=== PATIENT | female | born 1940 | race Caucasian/White ===

== ENCOUNTER 2022-06-16 13:09 | Inpatient (IN) | payer OTHER ==
[~2022-06-16] VITALS: Ht 154.9 cm; Wt 74.6 kg
[2022-06-16 14:33] LABS: Urine Bacteria NONE SEEN /hpf (None Seen); Urine Blood Negative /uL (Negative); Urine Mucus FEW (None Seen); Urine Specific Gravity 1.016 (1.001-1.035); Urine WBC 200 /hpf (0 - 5)
[2022-06-16 15:00] LABS: Basophils # (auto) 0 10 ^3/uL (0-0.2); Basophils % (auto) 0.3 % (0.0-2.0); Eosinophils # (auto) 0 10 ^3/uL (0-0.8); Hematocrit 46.2 % (36.0-46.0); Hemoglobin 14.7 g/dL (12.2-16.2); Lymphocytes # (auto) 0.3 10 ^3/uL (0.4-5.4); Lymphocytes % (auto) 2.5 % (10.0-50.0); Mean Corpuscular Hemoglobin 27.6 pg (28.0-32.0); Mean Corpuscular Hgb Conc. 31.9 g/dL (32.0-36.0); Mean Corpuscular Volume 86.5 fL (80.0-100.0); Monocytes # (auto) 0.5 10 ^3/uL (0-1.3); Monocytes % (auto) 3.3 % (0.0-12.0); Neutrophils # (auto) 12.9 10 ^3/uL (1.6-8.6); Neutrophils % (auto) 93.9 % (37.0-80.0); Nucleated Red Blood Cells % 0.1 %; Red Blood Cells 5.34 10^6/uL (4.0-5.20); White Blood Cell 13.7 10^3/uL (4.4-10.8)
[2022-06-16 15:18] LABS: Albumin 3.9 g/dL (3.4-5.0); BUN/Creatinine Ratio 16.2; Calcium 9.3 mg/dL (8.5-10.1); Potassium 3.9 mmol/L (3.5-5.1)
[2022-06-16 15:21] LABS: Bilirubin, Total 0.8 mg/dL (0.2-1.0); Total Protein 7.2 g/dL (6.4-8.2)
[2022-06-16] MEDS ORDERED: cefTRIAXone SOD 1,000 MG VL IV ONE (17:15)
[2022-06-16] MEDS ORDERED: SODIUM CHLORIDE 0.9% 1,000 ML IV ONE (17:15)
[2022-06-16] MEDS ORDERED: cefTRIAXone 1GM/50ML D5W 50 ML IV ONE (17:15)
[2022-06-16] MEDS ORDERED: KETOROLAC TROMETH 30 MG/ML 1ML VIAL IV ONE (17:15)
[2022-06-16] MEDS ORDERED: ONDANSETRON HCL 4 MG/2 ML VIAL IV PRN (19:15)
[2022-06-16] MEDS ORDERED: HYDROcodone-ACET 5/325MG TAB PO PRN (19:15)
[2022-06-16] MEDS ORDERED: MORPHINE SULFATE INJ 2 MG/ml SYRG IV PRN (19:15)
[2022-06-16] MEDS: SODIUM CHLORIDE 0.9% 1,000 ML IV SCH (19:15)
[2022-06-16] MEDS ORDERED: DEXTROSE (50%) 50ML SYRG IV PRN (19:30)
[2022-06-16] MEDS: ACCU-CHEK COMFORT CURVE STRIP VI SCH (22:00)
[2022-06-16] MEDS: InsuLIN REG 1unit/0.01ml Soln (100units/ml) SC SCH (23:25)
[2022-06-17] VITALS (14 sets, daily range): BP systolic 94–187; BP diastolic 38–94
[2022-06-17] MEDS: SODIUM CHLORIDE 0.9% 1,000 ML IV SCH ×2 (03:35→12:30)
[2022-06-17 06:13] LABS: Albumin 2.7 g/dL (3.4-5.0); Calcium 8.5 mg/dL (8.5-10.1); Potassium 3.7 mmol/L (3.5-5.1)
[2022-06-17 06:15] LABS: Basophils # (auto) 0 10 ^3/uL (0-0.2); Basophils % (auto) 0.1 % (0.0-2.0); Eosinophils # (auto) 0 10 ^3/uL (0-0.8); Hematocrit 38.3 % (36.0-46.0); Hemoglobin 12.5 g/dL (12.2-16.2); Lymphocytes # (auto) 0.4 10 ^3/uL (0.4-5.4); Mean Corpuscular Hemoglobin 28.3 pg (28.0-32.0); Mean Corpuscular Hgb Conc. 32.8 g/dL (32.0-36.0); Mean Corpuscular Volume 86.2 fL (80.0-100.0); Monocytes # (auto) 1.1 10 ^3/uL (0-1.3); Neutrophils % (auto) 91.9 % (37.0-80.0); Red Blood Cells 4.44 10^6/uL (4.0-5.20); Red Cell Distribution Width 13.8 % (11.8-14.3); White Blood Cell 18.5 10^3/uL (4.4-10.8)
[2022-06-17 06:17] LABS: Bilirubin, Total 0.6 mg/dL (0.2-1.0); Total Protein 6.1 g/dL (6.4-8.2)
[2022-06-17] MEDS: ACCU-CHEK COMFORT CURVE STRIP VI SCH ×4 (06:19→23:00)
[2022-06-17] MEDS: InsuLIN REG 1unit/0.01ml Soln (100units/ml) SC SCH ×4 (06:31→22:00)
[2022-06-17] MEDS ORDERED: INSULIN LANTUS (GLARGINE) 1 /0.01ml (100units/ml) SC SCH ×2 (07:00→22:00)
[2022-06-17] MEDS: ACETAMINOPHEN 325 MG TAB PO PRN (07:10)
[2022-06-17] MEDS: cefTRIAXone 1GM/50ML D5W 50 ML IV SCH (09:34)
[2022-06-17] MEDS: amLODIPine BESYLATE 5 MG TAB PO SCH (09:35)
[2022-06-17] MEDS ORDERED: ROCURONIUM 10MG/ML 10ML VIAL IV ONE ×2 (14:50→16:56)
[2022-06-17] MEDS ORDERED: PROPOFOL 10 MG/ML 20 ML IV ONE ×2 (14:50→16:55)
[2022-06-17] MEDS ORDERED: ePHEDrine SULFATE 50 MG/ML AMP IV ONE (14:50)
[2022-06-17] MEDS ORDERED: NEOSTIGMINE 1 MG/ML INJ (10mg/10ML VIAL) IV ONE (14:50)
[2022-06-17] MEDS ORDERED: GLYCOPYRROLATE 0.2 MG/ML 1ML VIAL IV ONE (14:50)
[2022-06-17] MEDS ORDERED: IOHEXOL 300 MG/ML 100ML BOTTLE IJ ONE (16:24)
[2022-06-17] MEDS ORDERED: ceFAZolin 1GM/50ML 100 ML IV ONE (16:50)
[2022-06-17] MEDS ORDERED: fentaNYL CITRATE 100 MCG/2 ML VL ONE (16:55)
[2022-06-17] MEDS ORDERED: hydrALAZINE HCL 20 MG/ML VL IV SCH (18:00)
[2022-06-17] MEDS ORDERED: fentaNYL CITRATE 100 MCG/2 ML VL IV PRN (18:30)
[2022-06-17] MEDS ORDERED: MORPHINE SULFATE 4 MG/ML SYR/VIAL IV PRN (18:30)
[2022-06-17] MEDS ORDERED: METOPROLOL TARTRATE 1MG/1ML-5ML VIAL IV ONE ×4 (19:00→19:45)
[2022-06-17] MEDS: METOPROLOL TARTRATE 1MG/1ML-5ML VIAL IV ONE ×2 (19:25→19:34)
[2022-06-17] MEDS: INSULIN LANTUS (GLARGINE) 1 /0.01ml (100units/ml) SC SCH (22:00)
[2022-06-18] VITALS (22 sets, daily range): BP systolic 113–139; BP diastolic 48–74
[2022-06-18 05:46] LABS: Basophils # (auto) 0 10 ^3/uL (0-0.2); Basophils % (auto) 0.2 % (0.0-2.0); Eosinophils # (auto) 0.2 10 ^3/uL (0-0.8); Eosinophils % (auto) 1.4 % (0.0-7.0); Hematocrit 37.9 % (36.0-46.0); Hemoglobin 12.6 g/dL (12.2-16.2); Lymphocytes # (auto) 1.2 10 ^3/uL (0.4-5.4); Lymphocytes % (auto) 8.5 % (10.0-50.0); Mean Corpuscular Hemoglobin 28.7 pg (28.0-32.0); Mean Corpuscular Hgb Conc. 33.3 g/dL (32.0-36.0); Monocytes # (auto) 0.7 10 ^3/uL (0-1.3); Monocytes % (auto) 4.9 % (0.0-12.0); Neutrophils # (auto) 11.9 10 ^3/uL (1.6-8.6); Nucleated Red Blood Cells % 0.1 %; Red Blood Cells 4.41 10^6/uL (4.0-5.20); Red Cell Distribution Width 13.8 % (11.8-14.3); White Blood Cell 14.1 10^3/uL (4.4-10.8)
[2022-06-18 05:56] LABS: Calcium 8.5 mg/dL (8.5-10.1); Magnesium 1.6 mg/dL (1.6-2.6); Potassium 3.8 mmol/L (3.5-5.1)
[2022-06-18] MEDS: InsuLIN REG 1unit/0.01ml Soln (100units/ml) SC SCH ×4 (07:00→22:00)
[2022-06-18] MEDS: ACCU-CHEK COMFORT CURVE STRIP VI SCH ×4 (07:00→22:45)
[2022-06-18] MEDS: SODIUM CHLORIDE 0.9% 1,000 ML IV SCH ×3 (08:00→22:45)
[2022-06-18] MEDS: amLODIPine BESYLATE 5 MG TAB PO SCH (10:00)
[2022-06-18] MEDS: cefTRIAXone 1GM/50ML D5W 50 ML IV SCH (10:19)
[2022-06-18] MEDS: ACETAMINOPHEN 325 MG TAB PO PRN (20:37)
[2022-06-18] MEDS: INSULIN LANTUS (GLARGINE) 1 /0.01ml (100units/ml) SC SCH (22:49)
[2022-06-19 05:00] VITALS: BP 120/56
[2022-06-19] MEDS: SODIUM CHLORIDE 0.9% 1,000 ML IV SCH ×2 (05:01→16:08)
[2022-06-19] MEDS: ACCU-CHEK COMFORT CURVE STRIP VI SCH ×4 (06:26→21:58)
[2022-06-19] MEDS: InsuLIN REG 1unit/0.01ml Soln (100units/ml) SC SCH ×4 (06:26→22:39)
[2022-06-19 09:00] VITALS: BP_SYST 166; BP_SYST 168; BP_DIAS 49; BP_DIAS 89
[2022-06-19] MEDS: cefTRIAXone 1GM/50ML D5W 50 ML IV SCH (10:41)
[2022-06-19] MEDS: amLODIPine BESYLATE 5 MG TAB PO SCH (10:41)
[2022-06-19 13:00] VITALS: BP 133/71
[2022-06-19 17:00] VITALS: BP 138/68
[2022-06-19] MEDS: ACETAMINOPHEN 325 MG TAB PO PRN (20:37)
[2022-06-19 22:00] VITALS: BP 151/77
[2022-06-19] MEDS: INSULIN LANTUS (GLARGINE) 1 /0.01ml (100units/ml) SC SCH (22:45)
[2022-06-20] MEDS: SODIUM CHLORIDE 0.9% 1,000 ML IV SCH ×3 (04:52→14:55)
[2022-06-20 05:00] VITALS: BP 137/74
[2022-06-20 06:11] LABS: Basophils # (auto) 0 10 ^3/uL (0-0.2); Basophils % (auto) 0.4 % (0.0-2.0); Eosinophils # (auto) 0.3 10 ^3/uL (0-0.8); Eosinophils % (auto) 4.3 % (0.0-7.0); Hematocrit 36.6 % (36.0-46.0); Hemoglobin 11.9 g/dL (12.2-16.2); Lymphocytes # (auto) 1.4 10 ^3/uL (0.4-5.4); Lymphocytes % (auto) 21.7 % (10.0-50.0); Mean Corpuscular Hemoglobin 28.3 pg (28.0-32.0); Mean Corpuscular Hgb Conc. 32.6 g/dL (32.0-36.0); Mean Corpuscular Volume 86.8 fL (80.0-100.0); Monocytes # (auto) 0.6 10 ^3/uL (0-1.3); Monocytes % (auto) 9.6 % (0.0-12.0); Neutrophils # (auto) 4.2 10 ^3/uL (1.6-8.6); Nucleated Red Blood Cells % 0.1 %; Red Blood Cells 4.22 10^6/uL (4.0-5.20); Red Cell Distribution Width 14.1 % (11.8-14.3); White Blood Cell 6.5 10^3/uL (4.4-10.8)
[2022-06-20 06:34] LABS: Calcium 8.2 mg/dL (8.5-10.1); Magnesium 1.8 mg/dL (1.6-2.6); Potassium 3.2 mmol/L (3.5-5.1)
[2022-06-20 06:37] LABS: BUN/Creatinine Ratio 33.3
[2022-06-20] MEDS: InsuLIN REG 1unit/0.01ml Soln (100units/ml) SC SCH ×4 (06:41→21:57)
[2022-06-20] MEDS: ACCU-CHEK COMFORT CURVE STRIP VI SCH ×4 (06:41→21:53)
[2022-06-20 09:00] VITALS: BP 145/72
[2022-06-20] MEDS: cefTRIAXone 1GM/50ML D5W 50 ML IV SCH (10:14)
[2022-06-20] MEDS: amLODIPine BESYLATE 5 MG TAB PO SCH (10:15)
[2022-06-20] MEDS ORDERED: CEPH-510 PO (11:58)
[2022-06-20] MEDS: ACETAMINOPHEN 325 MG TAB PO PRN ×2 (12:18→21:49)
[2022-06-20 13:00] VITALS: BP 150/78
[2022-06-20] MEDS ORDERED: POTASSIUM CHL 20 Meq TABLET PO ONE (13:45)
[2022-06-20] MEDS ORDERED: IOHEXOL 350 MG/ML 100ML IJ ONE (16:58)
[2022-06-20 17:00] VITALS: BP 158/70
[2022-06-20] MEDS ORDERED: ENOXAPARIN SOD 40 MG/0.4 ML SYRINGE SC ONE ×2 (17:00→20:00)
[2022-06-20] MEDS ORDERED: AZITHROMYCIN 500MG/ 250ML 250 ML IV ONE (19:15)
[2022-06-20] MEDS: INSULIN LANTUS (GLARGINE) 1 /0.01ml (100units/ml) SC SCH (21:58)
[2022-06-20 22:00] VITALS: BP 155/83
[2022-06-21] MEDS: SODIUM CHLORIDE 0.9% 1,000 ML IV SCH ×3 (00:30→15:55)
[2022-06-21 05:00] VITALS: BP 155/76
[2022-06-21] MEDS: InsuLIN REG 1unit/0.01ml Soln (100units/ml) SC SCH ×4 (06:44→21:29)
[2022-06-21] MEDS: ACCU-CHEK COMFORT CURVE STRIP VI SCH ×4 (06:44→21:31)
[2022-06-21] MEDS: cefTRIAXone 1GM/50ML D5W 50 ML IV SCH (08:21)
[2022-06-21] MEDS: amLODIPine BESYLATE 5 MG TAB PO SCH (08:21)
[2022-06-21] MEDS: ENOXAPARIN SOD 80 MG/0.8ML SYRINGE SC SCH ×2 (08:21→21:31)
[2022-06-21 09:00] VITALS: BP 157/79
[2022-06-21] MEDS ORDERED: ENOXAPARIN SOD 40 MG/0.4 ML SYRINGE SC SCH (10:00)
[2022-06-21] MEDS: AZITHROMYCIN 500MG/ 250ML 250 ML IV SCH (11:34)
[2022-06-21] MEDS ORDERED: LEVO500T31 PO (12:14)
[2022-06-21] MEDS ORDERED: METF-370 PO (12:30)
[2022-06-21] MEDS ORDERED: GLIP5TAB12 PO (12:30)
[2022-06-21 13:00] VITALS: BP 168/87
[2022-06-21] MEDS ORDERED: LACTULOSE 20Gm/30ML SOLN PO ONE (14:45)
[2022-06-21] MEDS: ACETAMINOPHEN 325 MG TAB PO PRN ×2 (15:44→21:31)
[2022-06-21] MEDS: hydrALAZINE HCL 20 MG/ML VL IV PRN ×2 (15:45→23:40)
[2022-06-21 17:00] VITALS: BP 157/75
[2022-06-21] MEDS: INSULIN LANTUS (GLARGINE) 1 /0.01ml (100units/ml) SC SCH (21:29)
[2022-06-21 22:00] VITALS: BP 173/80
[2022-06-22] MEDS: ACETAMINOPHEN 325 MG TAB PO PRN (03:12)
[2022-06-22 05:00] VITALS: BP 149/76
[2022-06-22] MEDS: ACCU-CHEK COMFORT CURVE STRIP VI SCH ×2 (06:30→12:09)
[2022-06-22] MEDS: InsuLIN REG 1unit/0.01ml Soln (100units/ml) SC SCH ×2 (07:00→12:09)
[2022-06-22] MEDS: AZITHROMYCIN 500MG/ 250ML 250 ML IV SCH ×2 (08:50→10:30)
[2022-06-22] MEDS: ENOXAPARIN SOD 80 MG/0.8ML SYRINGE SC SCH (08:50)
[2022-06-22] MEDS: cefTRIAXone 1GM/50ML D5W 50 ML IV SCH (08:50)
[2022-06-22] MEDS: amLODIPine BESYLATE 5 MG TAB PO SCH (08:52)
[2022-06-22 09:00] VITALS: BP 150/61
[2022-06-22] MEDS ORDERED: LANC-347 XX (11:44)
[2022-06-22] MEDS ORDERED: BLOO1KIT60 XX (11:44)
[2022-06-22] MEDS: hydrALAZINE HCL 20 MG/ML VL IV PRN (12:47)
[2022-06-22 13:00] VITALS: BP 164/89
== END 2022-06-22 14:51 | disposition home health service (06) | DRG 659 ==
LOC: ER 13:09 → OVERFLOW 19:16 → WEST WING 23:41 → DOU IN ICU 06-17 20:07 → TELE-CENTR 06-18 21:27
PROVIDERS: ADMIT Internal Medicine; ATTEND Internal Medicine
PROC: 0T768DZ Dilation of Right Ureter with Intraluminal Device, Via Natural or Artificial Opening Endoscopic (ICD-10-PCS; principal; 2022-06-17 17:10)
DX: N13.6 Pyonephrosis (principal); J96.00 Acute respiratory failure, unspecified whether with hypoxia or hypercapnia; E87.2 Acidosis; N20.2 Calculus of kidney with calculus of ureter; J98.11 Atelectasis; N17.0 Acute kidney failure with tubular necrosis; E11.65 Type 2 diabetes mellitus with hyperglycemia; E86.0 Dehydration; E88.09 Other disorders of plasma-protein metabolism, not elsewhere classified; I10 Essential (primary) hypertension; Z20.822 Contact with and (suspected) exposure to COVID-19; E66.9 Obesity, unspecified; B96.4 Proteus (mirabilis) (morganii) as the cause of diseases classified elsewhere; Z90.710 Acquired absence of both cervix and uterus; Z68.33 Body mass index [BMI] 33.0-33.9, adult; Z79.84 Long term (current) use of oral hypoglycemic drugs
CPT/HCPCS: 36415; 36600; 71275; 74018; 74176; 76000; 80048; 80053; 81001; 82805; 82962; 83036; 83690; 83735; 85025; 87081; 87086; 87088; 87186; 93005; 93970; 96365; 96375; 97163; G0378; J0690; J0696; J1815; J1885; J2405; J2704